=== PATIENT | male | born 1975 | race Caucasian/White ===

== ENCOUNTER 2020-02-05 18:22 | Emergency (ER) | payer MEDICAID ==
[~2020-02-05] VITALS: Ht 170.2 cm; Wt 5.0 kg
[2020-02-05] MEDS ORDERED: MAGNESIUM/ALUMINUM HYDROXIDE/SIMETHICONE 30ML UDC PO STA (21:20)
[2020-02-05] MEDS ORDERED: VISCOUS LIDOCAINE 2% 15 ML UDC PO STA (21:20)
[2020-02-05] MEDS ORDERED: DICYCLOMINE 10 MG/5 ML ORAL SYR PO STA (21:20)
[2020-02-05 21:48] LABS: BASOPHILS % 0.8 % (0.0-2.0); CHLORIDE 105 mEq/L (98-107); EOSINOPHILS % 2.4 % (0.0-5.0); HEMATOCRIT. 41.5 % (42.0-52.0); HEMOGLOBIN. 14.3 g/dL (14.0-18.0); LYMPHOCYTES % 21.2 % (20.0-50.0); MEAN CORPUSCULAR HEMOGLOBIN 28.8 pg (28.0-32.0); MEAN CORPUSCULAR VOLUME 83.9 fL (80.0-94.0); MEAN PLATELET VOLUME 8.7 fl (7.4-10.4); MONOCYTES % 4.8 % (2.0-8.0); NEUTROPHILS % 70.8 % (40.0-76.0); PLATELET 298 x1000/uL (130-400); RED BLOOD CELL COUNT 4.95 mill/uL (4.7-6.1); RED CELL DISTRIBUTION WIDTH 13.3 % (11.6-14.6)
[2020-02-05 23:53] VITALS: BP 133/71
== END 2020-02-06 00:04 | disposition home or self-care (01) ==
LOC: ER 18:22
DX: R10.13 Epigastric pain (principal); R06.02 Shortness of breath
CPT/HCPCS: 36415; 71045; 74176; 80053; 83880; 85025; 93005; 99285

== ENCOUNTER 2020-02-22 21:09 | Emergency (ER) | payer MEDICAID ==
[~2020-02-22] VITALS: Ht 170.2 cm; Wt 114.0 kg
[2020-02-22 23:07] VITALS: BP 119/76
== END 2020-02-23 01:53 | disposition home or self-care (01) ==
LOC: ER 21:09
DX: K56.7 Ileus, unspecified (principal); Z98.890 Other specified postprocedural states
CPT/HCPCS: 74021; 99283

== ENCOUNTER 2023-11-20 17:55 | Emergency (ER) | payer MEDICAID ==
[~2023-11-20] VITALS: Ht 167.6 cm; Wt 120.2 kg
[2023-11-20] MEDS ORDERED: MAGNESIUM/ALUMINUM HYDROXIDE/SIMETHICONE 30ML UDC PO STA (18:25)
[2023-11-20] MEDS ORDERED: MAGNESIUM/ALUMINUM HYDROXIDE/SIMETHICONE 30ML UDC PO NR (18:25)
[2023-11-20 18:30] VITALS: O2SAT 99
[2023-11-20] MEDS ORDERED: FAMOTIDINE 20MG TABLET PO ONE (18:30)
[2023-11-20] MEDS ORDERED: FAMOTIDINE 20MG TABLET PO NR (18:30)
[2023-11-20 19:13] LABS: BASOPHILS % 0.7 % (0.0-2.0); EOSINOPHILS % 6.1 % (0.0-5.0); HEMATOCRIT. 40.9 % (42.0-52.0); HEMOGLOBIN. 13.6 g/dL (14.0-18.0); MEAN CORPUSCULAR HEMOGLOBIN 28.9 pg (28.0-32.0); MEAN CORPUSCULAR HGB CONC 33.4 g/dL (31.0-37.0); MEAN CORPUSCULAR VOLUME 86.7 fL (80.0-94.0); MEAN PLATELET VOLUME 8.4 fl (7.4-10.4); MONOCYTES % 10.8 % (2.0-8.0); NEUTROPHILS % 62.4 % (40.0-76.0); PLATELET 319 x1000/uL (130-400); RED BLOOD CELL COUNT 4.71 mill/uL (4.7-6.1); RED CELL DISTRIBUTION WIDTH 13.2 % (11.6-14.6); WHITE BLOOD COUNT 10.4 x1000/uL (4.5-11.0)
[2023-11-20 19:27] LABS: ALANINE AMINOTRANSFERASE 49 IU/L (10-49); ALBUMIN 4.3 g/dL (3.2-4.8); ASPARTATE AMINOTRANSFERASE 23 IU/L (<34); BILIRUBIN TOTAL 0.4 mg/dL (0.1-1.0); CALCIUM 9.2 mg/dL (8.7-10.4); CARBON DIOXIDE 29 mEq/L (21-32); CHLORIDE 99 mEq/L (98-107); GLUCOSE 269 mg/dL (70-105); POTASSIUM 3.7 mEq/L (3.5-5.1); PROTEIN TOTAL 7.2 g/dL (6.0-8.3); SODIUM 133 mEq/L (136-145); TROPONIN I HIGH SENSITIVITY 7 ng/L (3.0-53); UREA NITROGEN BLOOD 13 mg/dL (9-23)
[2023-11-20] MEDS ORDERED: VISCOUS LIDOCAINE 2% 15 ML UDC PO NR (19:30)
[2023-11-20 23:13] LABS: CLARITY URINE CLEAR (CLEAR); COLOR URINE YELLOW (YELLOW); GLUCOSE URINE 3+ (NEGATIVE); KETONES URINE TRACE (NEGATIVE); LEUKOCYTE ESTERASE URINE NEGATIVE (NEGATIVE); NITRITE URINE NEGATIVE (NEGATIVE); OCCULT BLOOD URINE NEGATIVE (NEGATIVE); PH URINE 5.5 (4.5-8.0); PROTEIN URINE NEGATIVE (NEGATIVE); SPECIFIC GRAVITY URINE 1.038 (1.005-1.030)
[2023-11-20 23:24] LABS: BACTERIA URINE NONE SEEN; RBC URINE 0-2 /hpf (0-2); SQUAMOUS EPITHELIAL CELL URINE RARE /lpf (RARE/1+); WBC URINE NONE SEEN /hpf (0-2)
[2023-11-20] MEDS ORDERED: MAG-55 MT (23:44)
[2023-11-20] MEDS ORDERED: FAMO20TA8 MT (23:44)
[2023-11-21 00:50] VITALS: BP 128/75; PULSE 98; RESP 20; TEMP 98.9
== END 2023-11-21 00:50 | disposition home or self-care (01) ==
LOC: ER 17:55
DX: R10.9 Unspecified abdominal pain (principal)
CPT/HCPCS: 36415; 71045; 74176; 80053; 81003; 83880; 84484; 85025; 93005; 99284

== ENCOUNTER 2024-07-09 19:09 | Emergency (ER) | payer MEDICAID ==
[~2024-07-09] VITALS: Ht 177.8 cm; Wt 109.0 kg
[~2024-07-09 19:09] MED LIST: FAMO20TA8 MT; MAG-55 MT
[2024-07-09 19:20] VITALS: O2SAT 96
[2024-07-09] MEDS ORDERED: CIPHCO EACH EAR (20:41)
[2024-07-09] MEDS ORDERED: AZIT500T8 MT (20:42)
[2024-07-09 20:53] VITALS: BP 133/76; PULSE 89; RESP 20; TEMP 98.9
== END 2024-07-09 20:56 | disposition home or self-care (01) ==
LOC: ER 19:09
DX: H66.92 Otitis media, unspecified, left ear (principal); H60.92 Unspecified otitis externa, left ear; Z79.899 Other long term (current) drug therapy; Z88.0 Allergy status to penicillin
CPT/HCPCS: 99283